=== PATIENT | male | born 1965 | race Caucasian/White ===

== ENCOUNTER → 2016-09-05 | Outpatient (CLI) | payer OTHER ==
[~2016-09-05] MED LIST: ALLOPURINOL 30300 M1; ALPRAZOLAM 0.50.5 MG PO; AMLODIPINE BESY10 MG PO; AMOXICILLIN 50500 M1 PO; ASPIRIN EC81 M1 PO; ATIVAN1 MG PO; B-123000 MCG SL; BACLOFEN; BACLOFEN 10 MG10 MG PO; BACLOFEN 10MG T10 M1 PO; BACLOFEN 10MG T10 MG PO; BACTRIM DS TAB1 EACH PO; BUTALB-APAP-CA1 EACH PO; BYSTOLIC 5 MG5 M1 PO; BYSTOLIC10 MG PO; BYSTOLIC20 MG PO; CARISOPRODOL 3350 MG PO; CELEBREX100 MG/1 C PO; CENTRUM COMPLE1 EACH PO; CHLORTHALID; CHLORTHALIDONE25 MG PO; CIPROFLOXACIN500 M1 PO; CLEOCIN HCL300 MG PO; FIORICET 50-301 EACH PO; FIORICET 50-321 EACH PO; FLAGYL500 MG PO; HYDROCHLOROTHIA25 M1 PO; HYDROCODON-ACE1 EAC5 PO; HYDROCODON-ACE1 EAC7 PO; HYDROCODON-ACE1 EAC8 PO; HYDROCODONE-AP1 EAC6 PO; IBUPROFEN 200200 M1; IMITREX100 MG PO; LIMBREL 500 MG500 MG PO; LISINOPRIL-HCT1 EAC1 PO; LISINOPRIL-HCT1 EACH PO; LOPERAMIDE 2 MG2 M1 PO; LORTAB 10 MG-3473 ML PO; MOBIC15 MG PO; MULTI-VITAMIN1 EAC5 PO; MULTILIQ120 PO; MULTIVITAM9 MG/15 M1 PO; NEURONTIN 300300 M1 PO; NEURONTIN 300M300 M2 PO; NITROQUICK0.4 MG SL; NORCO 5-325 TA1 EACH PO; NORCO 7.5-3251 EACH PO; NORVASC 5 MG TAB5 MG PO; ONDANSETRON HCL4 M2 PO; OXYCODONE-APAP1 EAC6 PO; PEPCID40 MG PO; PERCOCET 7.5-31 EACH PO; POTASSIUM99 M1; POTASSIUM99 M1 PO; PRINZIDE 20-251 EACH PO; PROAIR HFA8.5 GM INH; RANITIDINE HCL300 M1 PO; RESTORIL15 MG PO; SOF-LAX100 MG PO; SOMA250 MG PO; TIZANIDINE HCL4 MG PO; TOPROL XL100 MG PO; TRAMADOL 50 MG50 MG; TRAMADOL 50 MG50 MG PO; TRAMADOL HCL150 MG PO; ULTRAM 50MG TAB50 MG PO; VANCOCIN 250 M250 M1 PO; VASOTEC20 MG PO; VICODIN 5-5001 EACH PO; VISTARIL 25 MG25 M1 PO; VITAMIN B12; VITAMIN D1000 UNI1; VITAMIN D1000 UNI1 PO; VITAMIN E400 UNIT PO; VOLTAREN GEL 1100 G1 TOP; VOLTAREN GEL 1100 G2 TOP; ZANTAC 150MG T150 M1 PO; ZESTORETIC 20-1 EAC3 PO; ZOFRAN4 MG PO; [UNRECOGNIZED DRUG - OTHER]; famvir PO
== END ==
LOC: CAT 09:34
DX: R06.00 Dyspnea, unspecified (principal)

== ENCOUNTER 2016-09-10 10:42 | Emergency (ER) | payer OTHER ==
[~2016-09-10] VITALS: Ht 180.3 cm; Wt 98.9 kg
== END 2016-09-10 12:09 | disposition home or self-care (01) ==
LOC: ER 10:42
DX: Z53.21 Procedure and treatment not carried out due to patient leaving prior to being seen by health care provider (principal)

== ENCOUNTER 2017-02-25 01:25 | Emergency (ER) | payer OTHER ==
[~2017-02-25] VITALS: Ht 180.3 cm; Wt 95.3 kg
[~2017-02-25 01:25] MED LIST changes: +COMPAZINE10 MG PO
[2017-02-25] MEDS ORDERED: TRAMADOL 50 MG50 MG PO (02:45)
[2017-02-25] MEDS ORDERED: NAPROSYN500 MG PO (02:45)
== END 2017-02-25 03:26 | disposition home or self-care (01) ==
LOC: ER 01:25
DX: S01.01XA Laceration without foreign body of scalp, initial encounter (principal); S01.312A Laceration without foreign body of left ear, initial encounter; S40.012A Contusion of left shoulder, initial encounter; S90.32XA Contusion of left foot, initial encounter; I10 Essential (primary) hypertension; K21.9 Gastro-esophageal reflux disease without esophagitis; G43.909 Migraine, unspecified, not intractable, without status migrainosus; Z86.73 Personal history of transient ischemic attack (TIA), and cerebral infarction without residual deficits; Z87.891 Personal history of nicotine dependence; Z88.1 Allergy status to other antibiotic agents; Z88.4 Allergy status to anesthetic agent; Z88.5 Allergy status to narcotic agent; Z88.8 Allergy status to other drugs, medicaments and biological substances; W18.09XA Striking against other object with subsequent fall, initial encounter; Y93.89 Activity, other specified; Y92.89 Other specified places as the place of occurrence of the external cause; Y99.8 Other external cause status

== ENCOUNTER 2017-04-25 07:32 | Inpatient (IN) | payer OTHER ==
[~2017-04-25] VITALS: Ht 224 cm; Wt 96.2 kg
--- NOTE | ~2017-04-25 | EKG ---
[address] [address] ELECTROCARDIOGRAM REPORT Name: JULIANE QUEZADA Room #: 218-P [facility] IN M.R.#: [id number] Admission: 04/25/17 Attend Phys: Leroy Zarco MD Discharge: 04/26/17 Date of : 65 Report #: [id number] THIS REPORT FOR: //name// [facility] ED Test Date: 2017-04-25 Test Time: 10:24:58 Pat Name: JULIANE QUEZADA Department: Room: 218 Gender: M Manager Interface: 12 : 1965 Requested By: Roberto Ocampo Order Number: [id number] MD: Gordo Zamora Measurements Intervals [place] Rate: 65 P: [place]: QRS: 43 QRSD: 102 T: 68 QT: 451 QTc: 469 Interpretive Statements Normal sinus rhythm. Electronically Signed On 04-27-2017 12:15:57 PATROL INSPECTOR by Gordo Zamora [email or web address] <ELECTRONICALLY SIGNED> By: Gordo Zamora MD 04/27/17 1215 1024 Katiana Zamora MD /ABE
--- NOTE | ~2017-04-25 | HC ---
[facility] [place] [address] CONSULTATION Name: JULIANE QUEZADA Room #: 218-P [facility] IN M.R.#: [id number] Admission: 04/25/17 Attend Phys: Leroy Zarco MD Discharge: 04/26/17 Date of : 65 Report #: [id number] THIS REPORT FOR: //name// CC: Leroy Russ DATE OF SERVICE: 04/25/2017 HISTORY OF PRESENT ILLNESS: This is a 52-year-old male patient who was evaluated by me because he indicated that a box fell on him. It hit the left side of the head and then he had symptom of a fog and some right-sided weakness. He had TIA in the past and he had migraine in the past. After admission, his symptoms have resolved. He feels back to his baseline. REVIEW OF SYSTEMS: Pretty extensive. He has an extensive history of migraine headache. He indicates he had a TIA in the past. He had some bradycardia when he was in the Emergency Room. He has been stable since then. He does have a history of anxiety. He is very claustrophobic and he does not think he can do a closed MRI. He has numerous other symptoms which are summarized in the patient's other notes and they were reviewed. That was his relevant 14-point review of system. PAST MEDICAL HISTORY: Positive for migraine. FAMILY HISTORY: Negative for early stroke. SOCIAL HISTORY: Record indicate that he is a former smoker. PHYSICAL EXAMINATION: Indicate he is alert, responsive, able to follow simple and complex command. His speech, concentration, fund of knowledge and memory is at his baseline. Cranial nerve examination 2-12 is unremarkable. Strength, sensation, reflexes and tone is symmetrical. There is no meningeal sign. There is no carotid bruit. Pupils look symmetrical and I do not see any papilledema. Cardiac examination is mostly unremarkable. No respiratory difficulty was noticed. He is a very well-built individual who does not have any dysmorphic features of eyes, ears and face. Blood pressure is 123/78, respirations 17, pulse is 61, temperature is 98.7. LABORATORY DATA: Indicate a normal white count. IMPRESSION: I suspect the patient's symptoms were most likely secondary to migraine. All the symptoms have resolved and he has migraine and transient ischemic attacks in the past. CT angiogram was reviewed and was normal. I would like to do an MRI in this patient, but he does not think he can do a [facility] [address] [place] [address] CONSULTATION Name: JULIANE QUEZADA Room #: 218-P [facility] IN .R.#: [id number] Admission: 04/25/17 Attend Phys: Leroy Zarco MD Discharge: 04/26/17 Date of : 65 Report #: [id number] closed MRI. So, I guess we have to do an open MRI as an outpatient. His cardiology workup is being done and we will see what that workup shows. I discussed all of it with the patient and I discussed the patient with the Emergency Room physician and we will see how he does and go ahead and get an EEG done some time. Thank you very much for this referral. <ELECTRONICALLY SIGNED> By: Narciso Russ MD 04/29/17 1107 2039 0518 Narciso Russ MD /nt
--- NOTE | ~2017-04-25 | 2DMMODE ---
[facility] [place] [address] 2 D/M-MODE ECHOCARDIOGRAM Name: JULIANE QUEZADA Room #: 170-9 ADM IN ..#: [id number] Admission: 04/25/17 Attend Phys: Leroy Zarco MD Discharge: Date of : 65 Date of Service: 04/25/17 1403 Report #: [id number] THIS REPORT FOR: //name// APPROVED REPORT Study performed: 04/25/2017 13:16:45 EXAM: Comprehensive 2D, Doppler, and color-flow Echocardiogram Patient Location: ER Room #: 9 Status: routine BSA: 2.16 HR: 62 bpm BP: 104/66 mmHg Rhythm: NSR Other Information Study Quality: Good Indications Sycnope, bradycardia. Hx: HTN, TIA 2D Dimensions RVDd: 43.78 mm LVEF(%): 69.17 (>50%) IVSd: 11.32 (7-11mm) LVOT Diam: 22.41 (18-24mm) LVDd: 46.12 mm PWd: 11.15 (7-11mm) LVDs: 28.25 (25-40mm) Aortic Root: 35.52 mm Navarrete's LVEF: 69.17 % Volumes Left Atrial Volume (Systole) Single Plane 4CH: 59.76 mL Single Plane 2CH: 51.33 mL LA ESV Index: 29.00 mL/m2 Aortic Valve AoV Peak Jun.: 1.26 m/s AO Peak Gr.: 6.32 mmHg LVOT Max P.22 mmHg LVOT Max V: 1.03 m/s ALLI Vmax: 3.22 cm2 Mitral Valve E/A Ratio: 1.4 MV Decel. Time: 201.05 ms [facility] [place] [address] 2 D/M-MODE ECHOCARDIOGRAM Name: PILARJULIANE LARA Room #: 1709 ADM IN ..#: [id number] Admission: 04/25/17 Attend Phys: Leroy Zarco MD Discharge: Date of : 65 Date of Service: 04/25/17 1403 Report #: [id number] MV E Max Jun.: 0.90 m/s MV A Jun.: 0.66 m/s MV PHT: 58.31 ms IVRT: 87.66 ms Pulmonary Valve PV Peak Jun.: 1.13 m/s PV Peak Gr.: 5.09 mmHg Pulmonary Vein P Vein S: 0.45 m/s P Vein A: 0.28 m/s P Vein D: 0.35 m/s P Vein A Dur.: 106.1 msec P Vein S/D Ratio: 1.29 Tricuspid Valve RAP Estimate: 5.00 mmHg Left Ventricle The left ventricle is normal size. There is normal LV segmental wall motion. There is normal left ventricular wall thickness. Left ventricular systolic function is normal. LVEF is 55-60%. The left ventricular diastolic function is normal. Right Ventricle The right ventricle is normal size. The right ventricular systolic function is normal. Atria The left atrium size is normal. The right atrium size is normal. Aortic Valve The aortic valve is normal in structure. No aortic regurgitation is present. There is no aortic valvular stenosis. Mitral Valve The mitral valve is normal in structure. Trace mitral regurgitation. No evidence of mitral valve stenosis. Tricuspid Valve The tricuspid valve is normal in structure. Minimal tricuspid regurgitation. Unable to assess PA pressure. Pulmonic Valve Pulmonic valve is not well visualized. Trace pulmonic regurgitation. [facility] [address] [place] [address] 2 D/M-MODE ECHOCARDIOGRAM Name: PILARJULIANE LARA Room #: 170-9 [facility] IN .R.#: [id number] Admission: 04/25/17 Attend Phys: Leroy Zarco MD Discharge: Date of : 65 Date of Service: 04/25/17 1403 Report #: [id number] Great Vessels The aortic root is normal in size. IVC is normal in size and collapses >50% with inspiration. Pericardium There is no pericardial effusion. <Conclusion> The left ventricle is normal size. LVEF is 55-60%. The aortic valve is normal in structure. The mitral valve is normal in structure. Trace mitral regurgitation. The tricuspid valve is normal in structure. Minimal tricuspid regurgitation. Unable to assess PA pressure. Pulmonic valve is not well visualized. Trace pulmonic regurgitation. There is no pericardial effusion. <ELECTRONICALLY SIGNED> By: Jonnie Vasquez MD 04/25/17 1403 1403 140 Jonnie Vasquez MD /INF
[~2017-04-25 07:32] MED LIST changes: +NAPROSYN500 MG PO
[2017-04-25 07:33] VITALS: BP 140/92
[2017-04-25 08:19] LABS: HEMATOCRIT 54.1 % (42.0-52.0); MCH 29.2 pg (26.0-34.0); MCHC 33.2 g/dL (28.0-37.0); MCV 87.9 fL (80.0-100.0); RBC 6.16 mil/uL (4.50-6.00); RDW 14.1 % (10.5-14.5); WBC 6.7 thou/uL (4.0-11.0)
[2017-04-25 08:24] LABS: ANION GAP 8 mmol/L (7-16); BUN 17 mg/dL (7-18); CALCIUM 8.8 mg/dL (8.5-10.1); CHLORIDE 105 mmol/L (98-107); CO2 28 mmol/L (21-32); GLUCOSE 93 mg/dL (74-106); POTASSIUM 3.9 mmol/L (3.5-5.1); SODIUM 141 mmol/L (136-145)
[2017-04-25 08:32] LABS: APTT 30.1 Seconds (24.5-32.8); INR 1.2; PROTIME 11.8 Seconds (9.3-11.4)
[2017-04-25 08:33] LABS: TROPONIN-I < 0.04 ng/mL (<0.06)
[2017-04-25 13:32] LABS: AMP/METHAMP Negative (Negative); BARBITURATES Negative (Negative); BENZODIAZEPINES POSITIVE (Negative); COCAINE Negative (Negative); METHADONE Negative (Negative); OPIATES Negative (Negative); PCP Negative (Negative); THC Negative (Negative)
[2017-04-25 16:47] VITALS: BP 129/81
[2017-04-25 17:24] VITALS: BP 123/78
[2017-04-25 19:45] VITALS: BP 114/70
[2017-04-25 21:28] VITALS: BP 106/66
[2017-04-26 00:30] VITALS: BP 111/68
[2017-04-26 04:07] LABS: CHOLESTEROL 161 mg/dL (<200); HDL CHOLESTEROL 44 mg/dL (>40); LDL CHOLESTEROL 98 mg/dL (<100); TC:HDL 3.7 Ratio (Not establshd); TRIGLYCERIDE 97 mg/dL (<150); VLDL 19 mg/dL (<40)
[2017-04-26 04:09] LABS: SERUM ASSESSMENT Clear
[2017-04-26 04:15] VITALS: BP 120/81
[2017-04-26 08:15] VITALS: BP 127/88
[2017-04-26 09:43] VITALS: BP 127/88
[2017-04-26 10:09] VITALS: BP 127/88
== END 2017-04-26 10:05 | disposition home or self-care (01) | DRG 308 ==
LOC: ER 07:32 → EROBS 10:32 → 2N 16:17
PROVIDERS: Emergency Medicine; Nurse Practitioner; Nurse Practitioner Gerontology
PROC: 009U3ZX Drainage of Spinal Canal, Percutaneous Approach, Diagnostic (ICD-10-PCS; principal; 2017-04-25)
DX: R00.1 Bradycardia, unspecified (principal); G93.40 Encephalopathy, unspecified; G43.909 Migraine, unspecified, not intractable, without status migrainosus; I10 Essential (primary) hypertension; G89.29 Other chronic pain; M54.9 Dorsalgia, unspecified; K21.9 Gastro-esophageal reflux disease without esophagitis; Z79.899 Other long term (current) drug therapy; Z86.73 Personal history of transient ischemic attack (TIA), and cerebral infarction without residual deficits; Z98.84 Bariatric surgery status; Z88.1 Allergy status to other antibiotic agents; Z88.8 Allergy status to other drugs, medicaments and biological substances; Z87.891 Personal history of nicotine dependence
CPT/HCPCS: 10081

== ENCOUNTER → 2017-05-16 | Outpatient (CLI) | payer OTHER | LOC: NUC 07:58 | DX: R00.1 Bradycardia, unspecified (principal); I10 Essential (primary) hypertension; Z87.891 Personal history of nicotine dependence ==

== ENCOUNTER → 2017-07-02 | Outpatient (CLI) | payer OTHER ==
[~2017-07-02] MED LIST changes: +ALPRAZOLAM2 MG PO; +AMITRIPTYLINE H10 M3 PO; +LISINOPRIL5 MG PO; +SSD CREAM 1% 5050 GM TOP; +VENTOLIN HFA 1818 GM INH
== END ==
LOC: CAT 09:44
PROVIDERS: Psychiatry & Neurology Neuromuscular Medicine
DX: I67.82 Cerebral ischemia (principal); G43.919 Migraine, unspecified, intractable, without status migrainosus; Z87.828 Personal history of other (healed) physical injury and trauma

== ENCOUNTER 2017-07-28 23:09 | Emergency (ER) | payer OTHER ==
[~2017-07-28] VITALS: Ht 180.3 cm; Wt 99.8 kg
[~2017-07-28 23:09] MED LIST changes: -ALPRAZOLAM2 MG PO; -AMITRIPTYLINE H10 M3 PO; -LISINOPRIL5 MG PO; -SSD CREAM 1% 5050 GM TOP; -VENTOLIN HFA 1818 GM INH
[2017-07-29] MEDS ORDERED: SSD CREAM 1% 5050 GM TOP (00:41)
[2017-07-29 01:19] VITALS: BP 109/71
[2018-03-20] MEDS ORDERED: ALPRAZOLAM2 MG PO (13:49)
[2018-03-20] MEDS ORDERED: AMLODIPINE BESY10 MG PO (13:51)
[2018-03-20] MEDS ORDERED: AMITRIPTYLINE H10 M3 PO (13:51)
[2018-03-20] MEDS ORDERED: LISINOPRIL-HCT1 EAC1 PO (13:54)
[2018-03-20] MEDS ORDERED: VENTOLIN HFA 1818 GM INH (14:03)
== END 2017-07-29 01:20 | disposition home or self-care (01) ==
LOC: ER 23:09
DX: T22.10XA Burn of first degree of shoulder and upper limb, except wrist and hand, unspecified site, initial encounter (principal); S01.01XA Laceration without foreign body of scalp, initial encounter; S01.21XA Laceration without foreign body of nose, initial encounter; W38.XXXA Explosion and rupture of other specified pressurized devices, initial encounter; Y93.G3 Activity, cooking and baking; Y92.89 Other specified places as the place of occurrence of the external cause; Y99.8 Other external cause status

== ENCOUNTER → 2017-08-05 | Outpatient (CLI) | payer OTHER ==
[~2017-08-05] MED LIST changes: +ALPRAZOLAM2 MG PO; +AMITRIPTYLINE H10 M3 PO; +LISINOPRIL5 MG PO; +SSD CREAM 1% 5050 GM TOP; +VENTOLIN HFA 1818 GM INH
== END ==
LOC: RAD 14:03
DX: R05 Cough (principal)

== ENCOUNTER → 2017-08-28 | Outpatient (CLI) | payer OTHER ==
[~2017-08-28] MED LIST changes: -ALPRAZOLAM2 MG PO; -AMITRIPTYLINE H10 M3 PO; -LISINOPRIL5 MG PO; -VENTOLIN HFA 1818 GM INH
== END ==
LOC: RAD 15:21
DX: R91.8 Other nonspecific abnormal finding of lung field (principal)

== ENCOUNTER 2018-01-08 09:43 | Inpatient (IN) | payer OTHER ==
[~2018-01-08] VITALS: Ht 180.3 cm; Wt 104.3 kg
[2018-01-08] VITALS (8 sets, daily range): BP systolic 119–142; BP diastolic 78–99
--- NOTE | ~2018-01-08 | EEG ---
[facility] [place] [address] ELECTROENCEPHALOGRAM Name: JULIANE QUEZADA Room #: 417[facility]I [facility] IN M.R.#: [id number] Admission: 01/08/18 Attend Phys: Zion Bangura MD Discharge: 01/09/18 Date of : 65 Report #: [id number] THIS REPORT FOR: //name// CC: Bennie Omer MD HISTORY: The patient is a 52-year-old male with syncope. An EEG is requested for further evaluation. DESCRIPTION: The awake record consists of symmetric moderate amplitude 8-9 Hz posterior dominant rhythm that attenuates with eye opening. Stage 1 sleep is characterized by attenuation of the background record. Photic stimulation was non-activating. No focal abnormalities or epileptiform discharges were noted. IMPRESSION: This is a normal adult awake to stage 1 sleep record. No focal abnormalities or epileptiform discharges were noted. By: 1022 1233 Paula Teran DO /nt
--- NOTE | ~2018-01-08 | EKG ---
[address] [place] [address] ELECTROCARDIOGRAM REPORT Name: JULIANE QUEZADA Room #: 417-I ADM IN M.R.#: [id number] Admission: 01/08/18 Attend Phys: Zion Bangura MD Discharge: Date of : 65 Report #: [id number] THIS REPORT FOR: //name// [facility] ED Test Date: 2018-01-08 Test Time: 09:52:59 Pat Name: JULIANE QUEZADA Department: Room: [facility] Gender: M Outreach Librarian: : 1965 Requested By: Mateo Moreno Order Number: [id number] MD: Kg Grullon Measurements Intervals [place] Rate: 74 P: 75 DE: 199 QRS: 52 QRSD: 96 T: 87 QT: 394 QTc: 438 Interpretive Statements Sinus rhythm No significant abnormality Baseline wander in lead(s) V1 Compared to ECG 04/25/2017 10:24:58 No significant changes Electronically Signed On 01-08-2018 16:52:51 CDT by Kg Grullon [email or web address] <ELECTRONICALLY SIGNED> By: Kg Grullon MD, [facility] 01/08/18 1652 Kg Grullon MD, [facility] /EPI
--- NOTE | ~2018-01-08 | HC ---
[facility] [place] [address] CONSULTATION Name: PILARJULIANE BERMUDEZ Room #: 417-I [facility] IN .R.#: [id number] Admission: 01/08/18 Attend Phys: Zion Bangura MD Discharge: 01/09/18 Date of : 65 Report #: [id number] THIS REPORT FOR: //name// CC: Bennie Bangura DATE OF SERVICE: 01/09/2018 INDICATION: Syncope. HISTORY OF PRESENT ILLNESS: This is a 52-year-old gentleman with a history of hypertension, bradycardia, and TIA, presenting with recurrent syncope. He initially presented with a syncopal episode last year. He was undergoing a lumbar puncture, developed bradycardia and syncope. That was attributed to a vasovagal event. Since then, the beta-laith was discontinued. Over the past 3 days, he has had 3 episodes of near syncope. Two of them occurred when he stood up to start walking. He started to feel nausea and lightheadedness. He sat down and the symptoms resolved. The third episode occurred at work, he was standing, putting something on a shelf. He developed lightheadedness and near syncope. There is no history of chest pains, dyspnea, fever, or diarrhea. PAST MEDICAL HISTORY: Hypertension, TIA, chronic back pains, and gastric bypass. ALLERGIES: INCLUDE AMBIEN, AZITHROMYCIN, FENTANYL, AND HYDROMORPHONE. MEDICATIONS AT HOME: Include lisinopril/HCTZ, amlodipine 10 mg, Neurontin, and Ultram. SOCIAL HISTORY: Denies tobacco use. FAMILY HISTORY: Negative for premature CAD. REVIEW OF SYSTEMS: A full 10-point review of systems was performed. Only the pertinent positives and negatives are described in the HPI. PHYSICAL EXAMINATION: VITAL SIGNS: Blood pressure is 128/84, heart rate is 68 beats per minute. GENERAL APPEARANCE: This is a mildly overweight male, in no acute distress. HEENT: Normocephalic. Sclerae are anicteric. ENT: Oral mucosa moist. NECK: Supple. LUNGS: Clear to auscultation. CARDIAC: Regular rate and rhythm, S1, S2 positive. ABDOMEN: Soft, nontender. EXTREMITIES: No cyanosis, trace edema. [facility] [address] [place] [address] CONSULTATION Name: JULIANE QUEZADA Room #: 417-I [facility] IN [facility]#: [id number] Admission: 01/08/18 Attend Phys: Zion Bangura MD Discharge: 01/09/18 Date of : 65 Report #: [id number] DIAGNOSTIC STUDIES: ECG reveals sinus rhythm, nonspecific ST segment abnormalities. LABORATORY VALUES: Hemoglobin on admission was 18.6, repeat was 16.6; platelet count 200,000. Sodium is 138, creatinine is 1.1. Troponin is negative. ASSESSMENT AND PLAN: 1. Syncope, probably vasovagal mediated. We will check orthostatic blood pressures to rule out orthostatic hypotension. In reviewing his medications, we will discontinue the hydrochlorothiazide. This may be contributing to a reflexive response. I did recommend to the patient that when he starts to feel lightheaded, that he needs to sit down or lay down quickly. In addition, I did recommend staying well hydrated. Continue telemetry for now. 2. Bradycardia, stable at this time with no further episodes. If he has recurrent episodes, he may need a loop recorder. 3. Hypertension, stable blood pressure on the current regimen. <ELECTRONICALLY SIGNED> By: Quinn Hensley MD 01/10/18 0748 0925 1425 Quinn Hensley MD /nt
[2018-01-08 10:23] LABS: ABSOLUTE NEUTROPHILS 5.4 thou/uL (1.4-8.2); BASOPHILS 0.6 % (0.0-2.0); EOSINOPHILS 1.6 % (0.0-3.0); HEMATOCRIT 53.7 % (42.0-52.0); HEMOGLOBIN 18.6 gm/dL (14.0-18.0); LYMPHOCYTES 21.9 % (24.0-44.0); MCH 29.3 pg (26.0-34.0); MCHC 34.6 g/dL (28.0-37.0); MCV 84.5 fL (80.0-100.0); PLATELET COUNT 202 thou/uL (150-400); POLYS 68.9 % (36.0-66.0); RBC 6.35 mil/uL (4.50-6.00); RDW 13.7 % (10.5-14.5); WBC 7.9 thou/uL (4.0-11.0)
[2018-01-08 10:37] LABS: ANION GAP 7 mmol/L (7-16); BUN 16 mg/dL (7-18); CALCIUM 9.6 mg/dL (8.5-10.1); CHLORIDE 103 mmol/L (98-107); CO2 28 mmol/L (21-32); CREATININE 1.1 mg/dL (0.7-1.3); GLUCOSE 97 mg/dL (74-106); POTASSIUM 4.1 mmol/L (3.5-5.1); SODIUM 138 mmol/L (136-145)
[2018-01-08 10:41] LABS: ALBUMIN 4.1 g/dL (3.4-5.0); SGOT 21 U/L (15-37); SGPT 30 U/L (30-65); TOTAL BILIRUBIN 0.7 mg/dL (<0.1-1.0); TROPONIN-I <0.06 ng/mL (<0.06)
[2018-01-09 04:58] VITALS: BP 128/84
[2018-01-09 07:04] LABS: HEMATOCRIT 49.4 % (42.0-52.0); MCH 29.1 pg (26.0-34.0); MCHC 33.6 g/dL (28.0-37.0); MCV 86.8 fL (80.0-100.0); RBC 5.69 mil/uL (4.50-6.00); RDW 13.9 % (10.5-14.5); WBC 5.9 thou/uL (4.0-11.0)
[2018-01-09 07:07] LABS: HEMOGLOBIN 16.6 gm/dL (14.0-18.0)
[2018-01-09 07:15] LABS: CALCIUM 8.7 mg/dL (8.5-10.1); POTASSIUM 4.6 mmol/L (3.5-5.1)
[2018-01-09 07:30] VITALS: BP 129/80
[2018-01-09] MEDS ORDERED: LISINOPRIL5 MG PO (11:02)
[2018-01-09 13:05] VITALS: BP 129/80
== END 2018-01-09 14:03 | disposition home or self-care (01) | DRG 312 ==
LOC: ER 09:43 → 4E 12:03 → EROBS 12:03 → 4E 13:10
PROVIDERS: Hospitalist; Physician Assistant
DX: R55 Syncope and collapse (principal); I10 Essential (primary) hypertension; F41.9 Anxiety disorder, unspecified; G89.29 Other chronic pain; M54.9 Dorsalgia, unspecified; K21.9 Gastro-esophageal reflux disease without esophagitis; R00.1 Bradycardia, unspecified; G43.909 Migraine, unspecified, not intractable, without status migrainosus; Z88.6 Allergy status to analgesic agent; Z88.1 Allergy status to other antibiotic agents; Z88.8 Allergy status to other drugs, medicaments and biological substances; Z98.84 Bariatric surgery status; Z86.73 Personal history of transient ischemic attack (TIA), and cerebral infarction without residual deficits; Z87.891 Personal history of nicotine dependence; Z79.899 Other long term (current) drug therapy
CPT/HCPCS: 10183

== ENCOUNTER → 2018-03-13 | Outpatient (CLI) | payer OTHER ==
[~2018-03-13] MED LIST changes: +LISINOPRIL5 MG PO
== END ==
LOC: RAD 03-06 11:25
DX: K21.9 Gastro-esophageal reflux disease without esophagitis (principal); R19.7 Diarrhea, unspecified

== ENCOUNTER → 2018-03-21 | Outpatient (CLI) | payer OTHER ==
[~2018-03-21] MED LIST changes: +ALPRAZOLAM2 MG PO; +AMITRIPTYLINE H10 M3 PO; +VENTOLIN HFA 1818 GM INH
== END ==
LOC: RAD 11:16
DX: M77.31 Calcaneal spur, right foot (principal)

== ENCOUNTER → 2018-03-25 | Outpatient (CLI) | payer OTHER ==
[~2018-03-25] VITALS: Ht 180.3 cm; Wt 99.8 kg
--- NOTE | ~2018-03-25 | O ---
[facility] [place] [address] OPERATIVE REPORT Name: PILARJULIANE BERMUDEZ Room #: REG [facility] Brenda#: [id number] Admission: 03/25/18 Attend Phys: Denver Hernandez MD, Discharge: Date of : 65 Report #: [id number] THIS REPORT FOR: //name// CC: Bennie Hernandez DATE OF SERVICE: 03/25/2018 PREOPERATIVE DIAGNOSES: 1. History of laparoscopic sleeve gastrectomy. 2. Significant weight regain. 3. Gastroesophageal reflux disease. POSTOPERATIVE DIAGNOSES: 1. History of laparoscopic sleeve gastrectomy. 2. Significant weight regain. 3. Gastroesophageal reflux disease. 4. Dilated gastric sleeve. 5. Small hiatal hernia. PROCEDURE PERFORMED: Thorough esophagogastroduodenoscopy (EGD). SURGEON: Denvre Hernandez MD CLINICAL BUSINESS ANALYST: None. ANESTHESIA: Monitored anesthesia care. ESTIMATED BLOOD LOSS: None. COMPLICATIONS: None. SPECIMENS: None. INDICATIONS: The patient is a 53-year-old obese male who several years ago underwent a laparoscopic sleeve gastrectomy for weight loss, with initial significant weight loss, who has had weight regain as of late, even while maintaining an appropriate postoperative bariatric diet. The patient has also developed significant GERD and as such, indication was for the above-mentioned procedure today. DESCRIPTION OF PROCEDURE: After explaining the risks, benefits and alternatives of the procedure with the patient in detail and obtaining consent, the patient was brought to the endoscopy suite supine on the hospital cart. After conducting a thorough timeout procedure, verifying correct patient and procedure, the patient was given monitored anesthesia care after positioning him [facility] [address] [place] [address] OPERATIVE REPORT Name: JULIANE QUEZADA Room #: REG [facility].#: [id number] Admission: 03/25/18 Attend Phys: Denver Hernandez MD, Discharge: Date of : 65 Report #: [id number] in the left lateral decubitus position. The [employer] upper endoscope was used to intubate the oropharynx, was easily traversed down into the esophagus and past the pylorus and the second portion of duodenum. Slow and careful withdrawal of the scope showed no evidence of duodenitis, gastritis, esophagitis, mass, lesions or ulcerations. Within the gastric sleeve, it did appear slightly dilated and I was actually able to easily retroflex within the mid body of the stomach, showing evidence of a small hiatal hernia as well. Photodocumentation of the dilated sleeve as well as a small hiatal hernia were taken and provided to the patient and the permanent medical record. Slow withdrawal of the scope into the distal esophagus showed a patulous lower esophageal sphincter, but no evidence of reflux esophagitis or Moyer's changes. The scope was advanced back in the gastric lumen where stomach was fully desufflated. The scope was removed via the oropharynx, passed off the field. At the completion of the procedure, all instrument, needle and sponge counts were correct. The patient tolerated the procedure without incident, was awakened in the endoscopy suite and transitioned to the recovery room in stable condition with no apparent complications. <ELECTRONICALLY SIGNED> By: Denver Hernandez MD, FACS 03/26/18 0858 0855 1112 Denver Hernandez MD, FACS /nt
== END | disposition home or self-care (01) ==
LOC: GI 06:59
DX: K95.89 Other complications of other bariatric procedure (principal); E66.9 Obesity, unspecified; K44.9 Diaphragmatic hernia without obstruction or gangrene; K21.9 Gastro-esophageal reflux disease without esophagitis; Z90.3 Acquired absence of stomach [part of]; Z98.84 Bariatric surgery status; I10 Essential (primary) hypertension; G43.909 Migraine, unspecified, not intractable, without status migrainosus; G89.29 Other chronic pain; Z98.890 Other specified postprocedural states; Z87.891 Personal history of nicotine dependence; Z86.73 Personal history of transient ischemic attack (TIA), and cerebral infarction without residual deficits; Z79.899 Other long term (current) drug therapy; Z88.8 Allergy status to other drugs, medicaments and biological substances; Z68.30 Body mass index [BMI] 30.0-30.9, adult
CPT/HCPCS: 62110; 62900

== ENCOUNTER → 2018-05-28 | Outpatient (CLI) | payer OTHER | LOC: RAD 14:31 | DX: S09.90XA Unspecified injury of head, initial encounter (principal); M76.892 Other specified enthesopathies of left lower limb, excluding foot; M54.5 Low back pain; W19.XXXA Unspecified fall, initial encounter; Y93.89 Activity, other specified; Y92.89 Other specified places as the place of occurrence of the external cause; Y99.8 Other external cause status ==

== ENCOUNTER 2018-06-08 20:22 | Emergency (ER) | payer OTHER ==
[~2018-06-08] VITALS: Ht 180.3 cm; Wt 103.4 kg
[2018-06-08] MEDS ORDERED: NORCO 5-325 TA1 EACH PO (22:12)
[2018-06-08] MEDS ORDERED: FLEXERIL PO (22:12)
[2018-06-08 22:41] VITALS: BP 105/63
== END 2018-06-08 22:43 | disposition home or self-care (01) ==
LOC: ER 20:22
DX: S09.90XA Unspecified injury of head, initial encounter (principal); M25.572 Pain in left ankle and joints of left foot; M79.642 Pain in left hand; M54.5 Low back pain; M25.532 Pain in left wrist; G89.29 Other chronic pain; M54.9 Dorsalgia, unspecified; G43.909 Migraine, unspecified, not intractable, without status migrainosus; I10 Essential (primary) hypertension; Z87.891 Personal history of nicotine dependence; Z88.8 Allergy status to other drugs, medicaments and biological substances; Z88.4 Allergy status to anesthetic agent; Z88.6 Allergy status to analgesic agent; Z86.73 Personal history of transient ischemic attack (TIA), and cerebral infarction without residual deficits; W00.0XXA Fall on same level due to ice and snow, initial encounter; Y93.89 Activity, other specified; Y92.89 Other specified places as the place of occurrence of the external cause; Y99.8 Other external cause status

== ENCOUNTER 2018-10-15 11:04 | Emergency (ER) | payer OTHER ==
[~2018-10-15] VITALS: Ht 180.3 cm; Wt 103.4 kg
[~2018-10-15 11:04] MED LIST changes: +FLEXERIL PO
[2018-10-15] MEDS ORDERED: PROAIR HFA8.5 GM INH (11:25)
[2018-10-15] MEDS ORDERED: XANAX 0.25 MG0.25 MG PO (11:26)
[2018-10-15] MEDS ORDERED: LEXAPRO 10 MG T10 M2 PO (11:28)
[2018-10-15] MEDS ORDERED: BUTALB-APAP-CA1 EACH PO (11:29)
[2018-10-15] MEDS ORDERED: CENTRUM SILVER1 EAC4 PO (11:31)
[2018-10-15] MEDS ORDERED: ASPIR 8181 MG PO (11:31)
[2018-10-15] MEDS ORDERED: VOLTAREN GEL 1100 G2 TOP (11:31)
[2018-10-15] MEDS ORDERED: MOBIC15 MG PO (13:28)
[2018-10-15 14:08] VITALS: BP 123/84
--- NOTE | 2018-10-16 16:08 | EKG ---
[place] [address] [employer] [place] [address] ELECTROCARDIOGRAM REPORT Name: JULIANE QUEZADA Room #: DEP Brenda#: [id number] ������������������ Admission: 10/15/18 ������������������ Attend Phys: Discharge: 10/15/18 ������������������ Date of : 65 Report #: [id number] ����������������������������������������������������������������� [id number] THIS REPORT FOR: //name// [facility] ED Test Date: 2018-10-15 Test Time: 11:35:31 Pat Name: JULIANE QUEZADA Department: Room: Gender: Diamond Polisher: ALFRED : 1965 Requested By: Court Pearce Order Number: [id number] MD: Quinn Hensley Measurements Intervals [place] Rate: 65 P: [place]: QRS: 77 QRSD: 90 T: 82 QT: 438 QTc: 456 Interpretive Statements Sinus rhythm Nonspecific ST segment abnormalities Compared to ECG 01/08/2018 09:52:59 No significant change Electronically Signed On 10-16-2018 16:08:27 CDT by Quinn Hensley [email or web address] ��������������������������������������������� <ELECTRONICALLY SIGNED> ���������������������������������������� By: Quinn Hensley MD ��������������������������������������������� 10/16/18 1608 1135 1135 Quinn Hensley MD /ABE
== END 2018-10-15 14:10 | disposition home or self-care (01) ==
LOC: ER 11:04
DX: S46.811A Strain of other muscles, fascia and tendons at shoulder and upper arm level, right arm, initial encounter (principal); S80.01XA Contusion of right knee, initial encounter; R07.89 Other chest pain; M54.2 Cervicalgia; I10 Essential (primary) hypertension; G89.29 Other chronic pain; M54.9 Dorsalgia, unspecified; G43.909 Migraine, unspecified, not intractable, without status migrainosus; Z86.73 Personal history of transient ischemic attack (TIA), and cerebral infarction without residual deficits; Z88.6 Allergy status to analgesic agent; Z88.5 Allergy status to narcotic agent; Z88.8 Allergy status to other drugs, medicaments and biological substances; Z87.891 Personal history of nicotine dependence; W10.8XXA Fall (on) (from) other stairs and steps, initial encounter; Y93.89 Activity, other specified; Y92.89 Other specified places as the place of occurrence of the external cause; Y99.8 Other external cause status

== ENCOUNTER → 2018-10-16 | Outpatient (CLI) | payer OTHER ==
[~2018-10-16] MED LIST changes: +ASPIR 8181 MG PO; +CENTRUM SILVER1 EAC4 PO; +LEXAPRO 10 MG T10 M2 PO; +XANAX 0.25 MG0.25 MG PO
== END ==
LOC: CAT 11:16
DX: Z13.6 Encounter for screening for cardiovascular disorders (principal); E78.00 Pure hypercholesterolemia, unspecified; I25.10 Atherosclerotic heart disease of native coronary artery without angina pectoris

== ENCOUNTER 2019-01-27 06:06 | Emergency (ER) | payer OTHER ==
[~2019-01-27] VITALS: Ht 180.3 cm; Wt 103.4 kg
[2019-01-27 07:58] VITALS: BP 111/63
== END 2019-01-27 07:58 | disposition home or self-care (01) ==
LOC: ER 06:06
DX: S14.0XXA Concussion and edema of cervical spinal cord, initial encounter (principal); G89.29 Other chronic pain; M54.9 Dorsalgia, unspecified; I10 Essential (primary) hypertension; G43.909 Migraine, unspecified, not intractable, without status migrainosus; Z86.73 Personal history of transient ischemic attack (TIA), and cerebral infarction without residual deficits; Z98.84 Bariatric surgery status; Z88.6 Allergy status to analgesic agent; Z88.5 Allergy status to narcotic agent; Z88.8 Allergy status to other drugs, medicaments and biological substances; Z87.891 Personal history of nicotine dependence; W18.2XXA Fall in (into) shower or empty bathtub, initial encounter; Y92.89 Other specified places as the place of occurrence of the external cause; Y93.89 Activity, other specified; Y99.8 Other external cause status

== ENCOUNTER 2019-03-24 05:48 | Emergency (ER) | payer OTHER ==
[~2019-03-24] VITALS: Ht 180.3 cm; Wt 88.5 kg
[2019-03-24] MEDS ORDERED: TRAMADOL 50 MG50 MG PO (06:00)
[2019-03-24 08:27] VITALS: BP 148/86
== END 2019-03-24 08:29 | disposition home or self-care (01) ==
LOC: ER 05:48
DX: S16.1XXA Strain of muscle, fascia and tendon at neck level, initial encounter (principal); S09.8XXA Other specified injuries of head, initial encounter; I83.892 Varicose veins of left lower extremity with other complications; I10 Essential (primary) hypertension; G43.909 Migraine, unspecified, not intractable, without status migrainosus; G89.29 Other chronic pain; M54.9 Dorsalgia, unspecified; Z88.6 Allergy status to analgesic agent; Z88.5 Allergy status to narcotic agent; Z87.891 Personal history of nicotine dependence; Z86.73 Personal history of transient ischemic attack (TIA), and cerebral infarction without residual deficits; W01.198A Fall on same level from slipping, tripping and stumbling with subsequent striking against other object, initial encounter; Y92.89 Other specified places as the place of occurrence of the external cause; Y93.89 Activity, other specified; Y99.8 Other external cause status

== ENCOUNTER 2019-03-24 23:30 | Emergency (ER) | payer OTHER ==
[~2019-03-24] VITALS: Ht 180.3 cm; Wt 88.5 kg
[2019-03-25 00:56] VITALS: BP 128/78
== END 2019-03-25 00:57 | disposition home or self-care (01) ==
LOC: ER 23:30
DX: I83.892 Varicose veins of left lower extremity with other complications (principal); I10 Essential (primary) hypertension; G43.909 Migraine, unspecified, not intractable, without status migrainosus; G89.29 Other chronic pain; M54.9 Dorsalgia, unspecified; Z86.73 Personal history of transient ischemic attack (TIA), and cerebral infarction without residual deficits; Z98.84 Bariatric surgery status; Z88.6 Allergy status to analgesic agent; Z88.5 Allergy status to narcotic agent; Z88.8 Allergy status to other drugs, medicaments and biological substances; Z87.891 Personal history of nicotine dependence

== ENCOUNTER → 2019-04-17 | Outpatient (CLI) | payer OTHER | LOC: RAD 13:08 | DX: R05 Cough (principal); R09.89 Other specified symptoms and signs involving the circulatory and respiratory systems ==

== ENCOUNTER 2019-05-26 01:18 | Emergency (ER) | payer OTHER ==
[~2019-05-26] VITALS: Ht 180.3 cm; Wt 103.4 kg
[2019-05-26 02:20] LABS: ABSOLUTE NEUTROPHILS 4.9 thou/uL (1.4-8.2); BASOPHILS 0.8 % (0.0-2.0); EOSINOPHILS 2.4 % (0.0-3.0); HEMATOCRIT 49.4 % (42.0-52.0); HEMOGLOBIN 16.5 gm/dL (14.0-18.0); MCH 29.7 pg (26.0-34.0); MCHC 33.4 g/dL (28.0-37.0); MCV 88.8 fL (80.0-100.0); MONOCYTES 7.5 % (1.0-8.0); PLATELET COUNT 223 thou/uL (150-400); POLYS 61.3 % (36.0-66.0); RBC 5.56 mil/uL (4.50-6.00); RDW 13.4 % (10.5-14.5); WBC 7.9 thou/uL (4.0-11.0)
[2019-05-26 02:21] LABS: CALCIUM 8.5 mg/dL (8.5-10.1); CREATININE 1.1 mg/dL (0.7-1.3); POTASSIUM 3.8 mmol/L (3.5-5.1)
[2019-05-26 04:31] VITALS: BP 131/89
== END 2019-05-26 04:32 | disposition home or self-care (01) ==
LOC: ER 01:18
PROVIDERS: Emergency Medicine
DX: G43.909 Migraine, unspecified, not intractable, without status migrainosus (principal); I10 Essential (primary) hypertension; R42 Dizziness and giddiness; Z88.6 Allergy status to analgesic agent; Z88.8 Allergy status to other drugs, medicaments and biological substances; Z86.73 Personal history of transient ischemic attack (TIA), and cerebral infarction without residual deficits; Z87.891 Personal history of nicotine dependence

== ENCOUNTER → 2019-07-24 | Outpatient (CLI) | payer OTHER ==
[~2019-07-24] VITALS: Ht 180.3 cm; Wt 99.8 kg
--- NOTE | 2019-07-24 18:26 | P ---
[facility] [place] [address] PROCEDURE REPORT Name: JULIANE QUEZADA Room #: REG [facility] Brenda#: [id number] Admission: 07/24/19 Attend Phys: Melvin Ac Discharge: Date of : 65 Report #: [id number] THIS REPORT FOR: cc: Bennie Baugh,Melvin Owen MD ~ CC: Melvin Baugh DO DATE OF SERVICE: 07/24/2019 PROCEDURE PERFORMED: Colonoscopy. HISTORY OF PRESENT ILLNESS: The patient is a 54-year-old male with a history of polyps on last colonoscopy in 2011. He has a strong family history of colon cancer in 2 brothers and a sister. He denies any symptoms at this time. DESCRIPTION OF PROCEDURE: The risks and benefits of the procedure were explained to the patient, those risks including, but not limited to bleeding, perforation, and the risk of sedation. He understood these risks and gave informed consent. Sedation was given using propofol per anesthesia. Next, a digital rectal exam was initially performed, which was normal. Next, using a standard Olympus colonoscope, the scope was placed in the patient's anus and advanced under direct vision to the cecum. The overall prep was good. The cecum and ileocecal valve were normal in appearance. The ascending, transverse, descending, and sigmoid colon were normal. The rectal mucosa was normal. On retroflexion, small internal hemorrhoids were noted, otherwise normal colonoscopy. The scope was then withdrawn and the procedure terminated. The patient tolerated the procedure well. IMPRESSION: 1. Small internal hemorrhoids. 2. Otherwise, normal colonoscopy. RECOMMENDATIONS: Repeat colonoscopy in 5 years due to family history. Thank you for allowing me to participate in his care. <ELECTRONICALLY SIGNED> By: Melvin Paredes MD 07/24/19 1826 1055 1423 Melvin Paredes MD /nt
== END | disposition home or self-care (01) ==
LOC: GI 08:26
DX: Z12.11 Encounter for screening for malignant neoplasm of colon (principal); Z86.010 Personal history of colon polyps; Z80.0 Family history of malignant neoplasm of digestive organs; K64.8 Other hemorrhoids; I10 Essential (primary) hypertension; K21.9 Gastro-esophageal reflux disease without esophagitis; G43.909 Migraine, unspecified, not intractable, without status migrainosus; F41.9 Anxiety disorder, unspecified; G89.29 Other chronic pain; M54.9 Dorsalgia, unspecified; Z98.890 Other specified postprocedural states; Z79.899 Other long term (current) drug therapy; Z88.8 Allergy status to other drugs, medicaments and biological substances; Z98.84 Bariatric surgery status; Z87.891 Personal history of nicotine dependence; Z86.73 Personal history of transient ischemic attack (TIA), and cerebral infarction without residual deficits
CPT/HCPCS: 62110; 62900

== ENCOUNTER → 2019-08-06 | Outpatient (CLI) | payer OTHER | LOC: ULTRA 08-03 17:57 | DX: K76.0 Fatty (change of) liver, not elsewhere classified (principal); N40.0 Benign prostatic hyperplasia without lower urinary tract symptoms; M47.815 Spondylosis without myelopathy or radiculopathy, thoracolumbar region ==

== ENCOUNTER → 2019-08-19 | Outpatient (CLI) | payer OTHER | LOC: RAD 07:59 | DX: R05 Cough (principal) ==

== ENCOUNTER → 2019-10-21 | Outpatient (CLI) | payer OTHER | LOC: RAD 08:11 | DX: M16.0 Bilateral primary osteoarthritis of hip (principal); M47.817 Spondylosis without myelopathy or radiculopathy, lumbosacral region; M48.061 Spinal stenosis, lumbar region without neurogenic claudication; M51.27 Other intervertebral disc displacement, lumbosacral region; M25.78 Osteophyte, vertebrae ==

== ENCOUNTER → 2019-11-11 | Outpatient (CLI) | payer OTHER ==
[~2019-11-11] VITALS: Ht 177.8 cm; Wt 104.3 kg
[~2019-11-11] MED LIST changes: +IBU-200200 MG PO
[2019-11-11 12:44] VITALS: BP 124/86
--- NOTE | 2019-11-11 12:56 | NUR ---
Pain Clinic Assessment: 1. History of Osteoarthritis: Left Lower Extremity Right Lower Extremity History of Rheumatoid Arthritis: Not Applicable 2. Height: 5 ft. 10 in. 177.8 cm. Weight: 230.0 lb. oz. 104.328 kg. Patient's BMI: 33.0 3. Vital Signs: BP: 124/86 Pulse: 75 Resp: 20 Temp: 02 Sat: 98 ECG Mon: 4. Pain Intensity: 7 5. Fall Risk: Dizziness: N Needs help standing or walking: N Fallen in the last 3 months: N Fall risk comments: 6. Patient on Blood Thinner: None 7. History of Hypertension: Y 8. Opioid Therapy greater than 6 weeks: Y Opiate Contract Signed: 9. Risk Assessment Tool Provided: LOW-3 10. Functional Assessment Tool: 47/ 11. Recreational Drug Use: Never Drug Type: Tobacco Use: Former Smoker Tobacco Type: Amount or Packs/day: How Many Years: Alcohol Use: No Frequency: Quant:
--- NOTE | 2019-11-17 11:23 | HPC ---
[facility] [place] [address] PAIN MANAGEMENT CONSULTATION Name: JULIANE QUEZADA Room #: REG Nano GutierrezBridgetteAmyBridgette#: [id number] Admission: 11/11/19 Attend Phys: Bennie Prakash DO Discharge: Date of : 65 Report #: [id number] THIS REPORT FOR: cc: Bennie Baugh James A. DO Johnson, James E. DO ~ DATE OF SERVICE: 11/11/2019 REFERRING PHYSICIAN: Bennie Baugh D.O. CHIEF COMPLAINT: Low back pain, bilateral lower extremity pain with paresthesias. HISTORY OF PRESENT ILLNESS: As you know, the patient is a 54-year-old male who has been referred to our service for acute onset of low back pain, bilateral lower extremity pain with paresthesias. The patient indicates his pain began 11/30/2014 and has progressively worsened. He denies injury or trauma that may have led to symptom development. The patient reports that he has had epidurals in the past, which gave excellent benefit. He has not sought further treatment with these injections, even though his pain has been present since 2014. He is taking 600 mg ibuprofen along with tramadol with some improvement in overall pain. He reports pain is present when lying down. He states that standing, lifting and bending exacerbate symptoms. He is utilizing a 3 wheeled walker, which he finds helpful for ambulation. Due to lack of improvement with conservative treatment options, the patient was subsequently referred to our clinic for evaluation. He has undergone imaging, which shows changes in the lumbar spine, concerning for the source of his symptoms. The patient reports today pain is continuous. Describes the pain as burning, shooting, aching, sharp, stabbing when describing symptoms, places current pain score at 7/10, daily average is 7/10, worst pain has been 10/10. The patient states that walking long distances, standing for any length of time and simple tasks with exercising exacerbates symptoms. Heat, cold compresses and rest tend to improve pain. He has been referred to our service to discuss interventional treatment options. PAST MEDICAL HISTORY: 1. Hypertension. 2. Degenerative joint disease. 3. Osteoarthritis. 4. Chronic stomach problems, status post gastric sleeve. 5. Asthma. 6. Migraine headaches. PAST SURGICAL HISTORY: [facility] [address] [place] [address] PAIN MANAGEMENT CONSULTATION Name: PILARJULIANE BERMUDEZ Room #: [facility]Wh[facility] Medical CenterBridgette.#: [id number] Admission: 11/11/19 Attend Phys: Bennie Prakash DO Discharge: Date of : 65 Report #: [id number] 1. Gastric sleeve surgery. 2. Foot surgery. SOCIAL HISTORY: The patient denies tobacco, alcohol, IV or illicit drug use. He is working, not receiving workmen's compensation nor is he trying to obtain disability benefits. He is unaccompanied at today's visit. REVIEW OF SYSTEMS: Positive for night sweats, fatigue, weakness, frequent and recurrent migraine headaches, wearing corrective eyewear, chronic sinus problems with rhinitis, shortness of breath with walking or lying flat, chest pain, asthma, wheezing, intermittent nausea, vomiting, constipation interspersed with diarrhea, abdominal pain, frequent urination, nocturia, change of force or stream urination, incontinence and dribbling to urine, varicose veins, lightheadedness and dizziness, numbness and tingling sensations, history of head injury, anxiety disorder, excessive thirst, urination, heat and cold intolerance. All other review of systems negative per 12-point review of systems other than those listed in history of present illness. Pain impact score 47 of 70 indicating moderate interference of daily activities secondary to pain. ALLERGIES: ZOLPIDEM, FENTANYL, AZITHROMYCIN, HYDROCODONE, BUTORPHANOL, KETOROLAC, CELECOXIB. CURRENT MEDICATIONS: Ibuprofen 400 mg 3 times a day, multivitamin 1 tab per day, diclofenac sodium gel applied topically 4 times a day to affected area, Fioricet one tab every 4 hours p.r.n. migraine, alprazolam 0.25 mg at bedtime, albuterol 2 puffs q. 4 hours p.r.n., lisinopril/hydrochlorothiazide 20/12.5 mg once a day, amlodipine 10 mg per day, gabapentin 300 mg t.i.d., tramadol 50 mg q. 8 hours p.r.n., cholecalciferol 1000 units a day, cyanocobalamin 3000 mcg per day. IMAGING: MRI of the lumbar spine obtained 10/21/2019 shows mild lumbar spondylosis, most significant disease present at L4-L5 and L5-S1. Very similar findings to the 04/07/2015 imaging. There is a generalized disk bulge and mild facet arthropathy changes noted at the L4-L5 level, mild bilateral neural foraminal narrowing, no central canal stenosis. L4-L5 shows mild facet degenerative changes, mild generalized disk bulge, moderate hypertrophic degeneration of the neural foramen. No significant central canal stenosis. PHYSICAL EXAMINATION: VITAL SIGNS: Blood pressure 124/86, pulse 75, respiratory rate 20 and unlabored. The patient is 98% on room air. Height 5 feet 10 inches tall, weight 230 pounds, BMI calculated 33.0. GENERAL: Well-developed, well-nourished, well-hydrated exogenously obese 54-year-old male appearing stated age, pain is rated today around 7/10. [facility] [place] [address] PAIN MANAGEMENT CONSULTATION Name: PILARJULIANE EBRMUDEZ Room #: REG SPARKLE Brenda#: [id number] Admission: 11/11/19 Attend Phys: Bennie Prakash DO Discharge: Date of : 65 Report #: [id number] HEENT: Normocephalic, atraumatic. Pupils equal, round and reactive. NEUROLOGIC: Speech is fluent. The patient deemed a fair historian. LUNGS: Appear clear. He is able to speak without difficulty. He completes full sentences. No audible wheezing or rhonchi. CARDIOVASCULAR: Regular. ABDOMEN: Soft, obese. EXTREMITIES: Show no clubbing, no cyanosis, no edema. MUSCULOSKELETAL: Lower extremity strength appears symmetrical 5/5, intact to light touch from L1 through S2 dermatomes. Seated straight leg raising negative. Supine straight leg raising negative. Mick's test is negative. Modified Gaenslen's positive for axial low back pain. Ankle clonus negative. Babinski is negative. Modified Gaenslen's positive for axial low back pain. There is some palpatory tenderness over the paraspinal musculature. No spinous process tenderness. Gait appears normal. Stance is slightly forward flexed lumbar spine with minor loss of lordotic curvature. ASSESSMENT: 1. Possible lumbar radiculopathy. 2. Facet arthropathy of the lumbar spine. 3. Displacement of lumbar intervertebral disk with suspected radiculopathy. 4. Facet arthropathy of the lumbar spine. 5. Lumbar degeneration. PLAN: 1. Based on today's physical exam and the history the patient provides, the description the patient uses in regards to pain, it appears he is suffering from 2 different pain generators, the major generator appears to be the facet changes at the L4-L5 and L5-S1 level, though the patient has been experiencing symptoms radiating down the legs bilaterally, more consistent with a possible lumbar radiculopathy. The patient was sent to our clinic by his primary care physician to discuss the possibility of undergoing interventional treatments to address his symptoms. We discussed the following interventional treatments and more conservative treatment options with the patient today. We discussed physical therapy, stretching exercises and core strengthening as a treatment course. We discussed suggestions for medication management including neuropathic pain medications and a consistent nonsteroidal anti-inflammatory for pain control. We discussed lumbar epidural injections to address any radicular component of the patient's symptoms and intra-articular facet injections, medial branch nerve blocks and radiofrequency lesioning to address the facet arthropathy and axial back pain issues. We also discussed surgical options with the patient, though at this point, we do not feel he has the findings in his imaging studies that would require such. After reviewing the risks and benefits of all proposed treatment options, he wished to move forward with a lumbar epidural injection under fluoroscopic guidance. 2. The patient was advised that due to third democrat payer restrictions, authorization would have to be obtained before the patient could undergo a [address] [address] PAIN MANAGEMENT CONSULTATION Name: JULIANE QUEZADA Room #: REG CLNano Gutierrez#: [id number] Admission: 11/11/19 Attend Phys: Bennie Prakash DO Discharge: Date of : 65 Report #: [id number] lumbar epidural injection. Authorization could take anywhere from 4-7 working days. We will begin this process immediately. Once it has been completed, we will have the patient return to undergo the first in the series. 3. In regards to the patient's facet arthropathy pain, I do feel that a conservative treatment initially would be recommended. We recommend physical therapy and anti-inflammatory medication management. He will follow up with PCP in regards to this issue. 4. We will see the patient back in followup visit once we have achieved authorization for the patient to undergo a lumbar epidural injection to address his lumbar radicular component to his symptoms today. 5. We wish to thank Dr. Baugh for the referral of the patient to our clinic. We will keep you apprised of his response to treatment as we address his ongoing pain issues with interventional treatments. Again, we wish to thank you for the opportunity to see the patient in consultation. <ELECTRONICALLY SIGNED> By: Bennie Prakash DO 11/17/19 1123 1026 1054 Bennie Prakash DO /nt
== END ==
LOC: PAIN 06:54
PROVIDERS: ATTEND Anesthesiology Pain Medicine
DX: M47.816 Spondylosis without myelopathy or radiculopathy, lumbar region (principal); M79.604 Pain in right leg; M79.605 Pain in left leg; M51.26 Other intervertebral disc displacement, lumbar region; M51.36 Other intervertebral disc degeneration, lumbar region; Z88.8 Allergy status to other drugs, medicaments and biological substances; Z79.899 Other long term (current) drug therapy

== ENCOUNTER → 2019-12-01 | Outpatient (CLI) | payer OTHER | LOC: LAB 09:44 | PROVIDERS: ATTEND Nurse Practitioner | DX: R53.83 Other fatigue (principal); R50.9 Fever, unspecified; Z20.828 Contact with and (suspected) exposure to other viral communicable diseases ==

== ENCOUNTER → 2019-12-09 | Outpatient (CLI) | payer OTHER ==
[~2019-12-09] VITALS: Ht 177.8 cm; Wt 109.7 kg
--- NOTE | ~2019-12-09 | HPC ---
[facility] [place] [address] PAIN MANAGEMENT CONSULTATION Name: JULIANE QUEZADA Room #: REG Nano Brenda#: [id number] Admission: 12/09/19 Attend Phys: Bennie Prakash DO Discharge: Date of : 65 Report #: [id number] THIS REPORT FOR: cc: Bennie Baugh James A. DO Johnson, James E. DO ~ CC: Bennie Shin DATE OF SERVICE: 12/09/2019 REFERRING PHYSICIAN: Bennie Baugh DO CHIEF COMPLAINT: Low back pain, bilateral lower extremity pain with paresthesias. HISTORY OF PRESENT ILLNESS: As you know, the patient is a 54-year-old male who reports longstanding history of low back pain, bilateral lower extremity pain with paresthesias. He has had an acute exacerbation of symptoms that brought him back to our clinic that began on 11/30/2014 and progressively worsened. He indicates that he has undergone treatment in the past for this and he had self resolution. Unfortunately, his symptoms did return. He returns today to discuss a lumbar epidural injection for which we have received authorization. He is placing his current pain score at 6/10. He suffered no new injury, no trauma that may have led to symptom continuation nor any changes in medical history since our visit of 11/11/2019. He returns today for the first in a series of epidural injections to address recurrent lumbar radicular pain. ALLERGIES: ZOLPIDEM, FENTANYL, AZITHROMYCIN, HYDROMORPHONE, BUTORPHANOL, KETOROLAC, CELECOXIB. CURRENT MEDICATIONS: Cyanocobalamin, cholecalciferol, tramadol, gabapentin, amlodipine, lisinopril, hydrochlorothiazide, albuterol, alprazolam, Fioricet, diclofenac, multivitamins and ibuprofen. SOCIAL HISTORY: The patient denies tobacco, alcohol, IV or illicit drug use. He is working, not receiving workmen's compensation, unaccompanied today. IMAGING: No new imaging available. PHYSICAL EXAMINATION: VITAL SIGNS: Blood pressure 118/84, pulse is 80, respiratory rate 16 and unlabored. The patient is 98% on room air. Height 5 feet 10 inches tall, weight 241.8 pounds, BMI calculated 34.7. GENERAL: Well-developed, well-nourished, well-hydr[place] [address] PAIN MANAGEMENT CONSULTATION Name: PILARJULIANE BERMUDEZ Room #: REG CLI [facility] [id number] Admission: 12/09/19 Attend Phys: Bennie Prakash DO Discharge: Date of : 65 Report #: [id number] 54-year-old male appearing stated age, pain is rated today as high as 6/10. HEENT: Normocephalic, atraumatic. Pupils equal, round and reactive. Extraocular muscles are intact. Speech fluent. EXTREMITIES: Show no clubbing, no cyanosis, no edema. MUSCULOSKELETAL: Lower extremity strength appears equal and symmetrical 5/5, intact to light touch from L1 through S2 dermatomes. Seated straight leg raising negative. Supine straight leg raising negative. Mick's test is negative. Modified Gaenslen's positive for some axial low back pain. ASSESSMENT: 1. Possible lumbar radiculopathy. 2. Facet arthropathy of the lumbar spine. 3. Displacement of lumbar intervertebral disk with suspected radiculopathy. 4. Facet arthropathy of the lumbar spine. 5. Degeneration of lumbar spine. PLAN: 1. The patient returns today in followup visit having received authorization to undergo lumbar epidural injection under fluoroscopic guidance to address lumbar radicular symptoms. The patient has been advised of the risks and the benefits of a lumbar epidural injection. These risks include but are not necessarily limited to bleeding, bruising, infection, worsening pain, no relief of pain, also risk of temporary or permanent muscle weakness, temporary or permanent nerve damage, possible paralysis and . The patient states understood and wished to proceed. 2. No medication changes made at today's visit. The patient will continue current medical therapy as previously prescribed. 3. We will see the patient back in followup visit on an as needed basis for possible next in the series of lumbar epidural injections. We are hopeful the patient will see good and prolonged benefit with today's injection. DESCRIPTION OF PROCEDURE: L5-S1 right parasagittal epidural steroid injection under fluoroscopic guidance. This is the first procedure of the first series that the patient is undergoing. After obtaining written consent, the patient was taken back to the fluoroscopy suite, placed in a prone position with pillow under the abdomen to decrease lumbar lordosis. The skin overlying the lumbosacral area was then prepped and draped in aseptic fashion. The L5-S1 vertebral interspace was then identified by AP fluoroscopy. The skin and subcutaneous tissue overlying the target site of injection was anesthetized with 3 mL 1% lidocaine. A 20-gauge 3-1/2-inch Tuohy needle was then advanced under fluoroscopic guidance towards the epidural space using a right parasagittal approach. The epidural space was identified using loss of resistance to air technique. After negative [address] [address] PAIN MANAGEMENT CONSULTATION Name: JULIANE QUEZADA Room #: REG CLNano Gutierrez#: [id number] Admission: 12/09/19 Attend Phys: Bennie Prakash DO Discharge: Date of : 65 Report #: [id number] aspiration for heme or cerebrospinal fluid, a total of 1 mL of Omnipaque was injected. A lumbar epidurogram was confirmed using both AP and lateral fluoroscopy. After negative aspiration for heme or cerebrospinal fluid, 5 mL of solution containing 2 mL 40 mg per mL, 80 mg of total triamcinolone along with 3 mL of lidocaine 1% was injected in increments. Contrast spread was noted posterior epidural space. The needle was then retracted approximately half way and needle tract flushed with 1 mL of 1% lidocaine. Needle was then removed. There were no apparent sensory or motor deficits in the lower extremity following the procedure. A sterile bandage was placed over the injection site. The heart rate, pulse, oximetry and blood pressure were continuously monitored after the procedure. There were no apparent complications. The patient tolerated the procedure well and was carefully escorted to the recovery room in stable condition. There were no apparent complications. After meeting discharge criteria, the patient was then discharged home. By: 0936 1107 Bennie Prakash DO /nt
[2019-12-09 14:48] VITALS: BP 118/84
--- NOTE | 2019-12-09 15:00 | NUR ---
Pain Clinic Assessment: 1. History of Osteoarthritis: Left Lower Extremity Right Lower Extremity History of Rheumatoid Arthritis: Not Applicable 2. Height: 5 ft. 10 in. 177.8 cm. Weight: 241.8 lb. oz. 109.680 kg. Patient's BMI: 34.7 3. Vital Signs: BP: 118/84 Pulse: 80 Resp: 16 Temp: 02 Sat: 98 ECG Mon: 4. Pain Intensity: 6 5. Fall Risk: Dizziness: N Needs help standing or walking: N Fallen in the last 3 months: N Fall risk comments: 6. Patient on Blood Thinner: None 7. History of Hypertension: Y 8. Opioid Therapy greater than 6 weeks: Y Opiate Contract Signed: 9. Risk Assessment Tool Provided: LOW-3 10. Functional Assessment Tool: 47/70 11. Recreational Drug Use: Never Drug Type: Tobacco Use: Former Smoker Tobacco Type: Amount or Packs/day: How Many Years: Alcohol Use: No Frequency: Quant:
== END | disposition home or self-care (01) ==
LOC: PAIN 12-02 06:55
PROVIDERS: ATTEND Anesthesiology Pain Medicine
DX: M54.5 Low back pain (principal); M51.36 Other intervertebral disc degeneration, lumbar region; M47.896 Other spondylosis, lumbar region; G89.29 Other chronic pain; Z88.8 Allergy status to other drugs, medicaments and biological substances; Z98.890 Other specified postprocedural states; Z79.899 Other long term (current) drug therapy; Z87.891 Personal history of nicotine dependence

== ENCOUNTER → 2020-01-22 | Outpatient (CLI) | payer OTHER ==
[~2020-01-22] MED LIST changes: -VITAMIN D1000 UNI1; +VITAMIN D325 MC3 PO
== END ==
LOC: LAB 09:43
PROVIDERS: ATTEND Specialist
DX: Z01.812 Encounter for preprocedural laboratory examination (principal); Z20.828 Contact with and (suspected) exposure to other viral communicable diseases

== ENCOUNTER → 2020-01-27 | Outpatient (CLI) | payer OTHER ==
[~2020-01-27] VITALS: Ht 180.3 cm; Wt 105.7 kg
--- NOTE | 2020-01-29 08:12 | P ---
[facility] [place] [address] PROCEDURE REPORT Name: JULIANE QUEZADA Room #: REG Nano Gutierrez#: [id number] Admission: 01/27/20 Attend Phys: Melvin Ac Discharge: Date of : 65 Report #: [id number] THIS REPORT FOR: cc: Bennie Baugh,Melvin Owen MD ~ CC: Melvin Baugh DO DATE OF SERVICE: 01/27/2020 PROCEDURE PERFORMED: Upper endoscopy with biopsies and esophageal dilation. HISTORY OF PRESENT ILLNESS: The patient is a 54-year-old male with burning in his esophagus. He does report mild intermittent dysphagia. He has had a previous history of gastric sleeve surgery approximately 10 years ago, not currently taking any antacids. He denies any odynophagia. He does take NSAIDs on a p.r.n. basis. Denies any nausea or vomiting. DESCRIPTION OF PROCEDURE: The risks and benefits of the procedure were explained to the patient, those risks including but not limited to bleeding, perforation and the risk of sedation. He understood these risks and gave informed consent. Sedation was given using propofol per anesthesia. Next, using a standard Olympus upper endoscope, the scope was placed in the patient's mouth and advanced under direct vision through the esophagus, stomach and into the second portion of the duodenum. The larynx was normal in appearance. The upper and mid esophagus was normal. In the distal esophagus, a possible short segment of Moyer's was noted. Biopsies were obtained. Also, grade A erosive esophagitis was noted. Upon entering the stomach, the gastric fundus was normal. Surgical changes of a gastric sleeve were noted in the body of the stomach. In the antrum, there was a moderate gastritis. Two small clean white based ulcers 3-4 mm were seen. No evidence of bleeding. Biopsies were obtained to rule out H. pylori. The pylorus was normal and patent. The duodenal bulb, first and second portion were all normal. The scope was then brought back up into the patient's stomach and a Savary guidewire was inserted through the scope, leaving the guidewire in place as the scope was then withdrawn. Next, a 48-Yakut Savary dilation of the esophagus was performed without difficulty. The wire and dilator were removed. The scope was reintroduced into the patient's stomach. There was no evidence of mucosal tear after dilation. The scope was then withdrawn and the procedure terminated. The patient tolerated the procedure well. IMPRESSION: 1. Grade A erosive esophagitis. 2. 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 [address] [address] PROCEDURE REPORT Name: JULIANE QUEZADA Room #: REG PSARKLE Gutierrez#: [id number] Admission: 01/27/20 Attend Phys: Melvin Ac Discharge: Date of : 65 Report #: [id number] 3. Surgical changes consistent with gastric sleeve. 4. Gastritis with 2 small antral ulcers. RECOMMENDATIONS: 1. Await biopsy results. 2. Recommend daily PPI therapy. 3. Observe the patient post-dilation. Thank you for allowing me to participate in his care. <ELECTRONICALLY SIGNED> By: Melvin Paredes MD 01/29/20 0812 0944 1200 Melvin Paredes MD /nt
--- NOTE | 2020-01-29 15:07 | PATH ---
[facility] [place] [address] PATHOLOGY RPT PROCEDURE Name: PILARJACOB BERMUDEZ Room #: REG SPARKLE Gutierrez#: [id number] Admission: 01/27/20 Date of : 65 Discharge: Report #: [id number] Path Case #: [id number] [facility] Accession Number: [id number] . 01 Material submitted: . PART A: stomach - BIOPSY OF GASTRITIS R/O H. PYLORI PART B: esophagus - BIOPSY OF DISTAL ESOPHAGUS R/O HOWELL'S. Modifiers: distal . 01 Clinical history: . REFLUX . 02 Diagnosis: A. Stomach, biopsy: - Mild chronic inactive gastritis with reactive changes. - An H. pylori immunostain is negative (A1; appropriate control). . B. Esophageal, distal, biopsy: - Ohwell's esophagus. - Negative for dysplasia. . (MAP:migue; 01/28/2020) MBR 01/28/2020 1548 Local . 02 Electronically signed: . Sushant Townsend MD, Pathologist NPI- [id number] . 01 Gross description: . A. The specimen is received in formalin, labeled "Jacob Simms", "biopsy of gastritis". Received are multiple segments of pale nelson soft tissue, ranging in size from 0.1 cm to 0.5 cm. The specimen is entirely submitted in cassette A1. . B. The specimen is received in formalin, labeled "Jacob Simms", "biopsy of distal esophagus". Received is a single segment of pale white-segura soft tissue, measuring 0.3 cm. The specimen is entirely submitted in cassette B1.([facility]; 01/27/2020) SELENE/CHAUNCEY 01/27/2020 1819 Local . 02 Pathologist provided ICD-10: K29.50, K22.70 . 02 CPT . 358268, 958070, [id number] Specimen Comment: A courtesy copy of this report has been sent to [phone], [phone] [address] PATHOLOGY RPT PROCEDURE Name: JACOB SIMMS Room #: REG Nano Gutierrez#: [id number] Admission: 01/27/20 Date of : 65 Discharge: Report #: [id number] Path Case #: [id number] Specimen Comment: [id number] Specimen Comment: Report sent to / DR CAMEJO Performed at: [address], [place], [place] [id number] MD Olvin Barber MD Phone: [phone] Performed at: [address] [id number] MD Keyla Quiroz MD Phone: [phone]
== END | disposition home or self-care (01) ==
LOC: GI 07:39
PROVIDERS: ATTEND Specialist
DX: R13.10 Dysphagia, unspecified (principal); K21.0 Gastro-esophageal reflux disease with esophagitis; K31.89 Other diseases of stomach and duodenum; K29.50 Unspecified chronic gastritis without bleeding; K22.70 Barrett's esophagus without dysplasia; F41.9 Anxiety disorder, unspecified; I10 Essential (primary) hypertension; G43.909 Migraine, unspecified, not intractable, without status migrainosus; Z87.891 Personal history of nicotine dependence; Z86.73 Personal history of transient ischemic attack (TIA), and cerebral infarction without residual deficits; Z86.19 Personal history of other infectious and parasitic diseases; Z88.1 Allergy status to other antibiotic agents; Z88.8 Allergy status to other drugs, medicaments and biological substances
CPT/HCPCS: 62110; 62900

== ENCOUNTER 2020-03-04 05:57 | Emergency (ER) | payer OTHER ==
[~2020-03-04] VITALS: Ht 180.3 cm; Wt 103.4 kg
[2020-03-04] MEDS ORDERED: LORCET 5-325 M1 EACH PO (06:07)
[2020-03-04 08:56] VITALS: BP 136/98
== END 2020-03-04 08:57 | disposition home or self-care (01) ==
LOC: ER 05:57
DX: G43.909 Migraine, unspecified, not intractable, without status migrainosus (principal); I10 Essential (primary) hypertension; G89.29 Other chronic pain; Z87.891 Personal history of nicotine dependence; Z88.1 Allergy status to other antibiotic agents; Z88.8 Allergy status to other drugs, medicaments and biological substances; Z88.5 Allergy status to narcotic agent; Z79.899 Other long term (current) drug therapy; Z86.73 Personal history of transient ischemic attack (TIA), and cerebral infarction without residual deficits

== ENCOUNTER 2020-06-27 07:24 | Emergency (ER) | payer OTHER ==
[~2020-06-27] VITALS: Ht 180.3 cm; Wt 103.4 kg
[~2020-06-27 07:24] MED LIST changes: +LORCET 5-325 M1 EACH PO
[2020-06-27] MEDS ORDERED: PRILOSEC OTC20 MG PO (07:34)
[2020-06-27] MEDS ORDERED: MEDROLDOSEPACK PO (07:55)
[2020-06-27 08:38] VITALS: BP 154/108
== END 2020-06-27 08:38 | disposition home or self-care (01) ==
LOC: ER 07:24
DX: M25.59 Pain in other specified joint (principal); G89.29 Other chronic pain; I10 Essential (primary) hypertension; G43.909 Migraine, unspecified, not intractable, without status migrainosus; Z87.891 Personal history of nicotine dependence; Z88.1 Allergy status to other antibiotic agents; Z88.6 Allergy status to analgesic agent; Z88.8 Allergy status to other drugs, medicaments and biological substances; Z79.899 Other long term (current) drug therapy; Z86.73 Personal history of transient ischemic attack (TIA), and cerebral infarction without residual deficits

== ENCOUNTER → 2020-11-08 | Outpatient (CLI) | payer OTHER ==
[~2020-11-08] MED LIST changes: +MEDROLDOSEPACK PO; +PRILOSEC OTC20 MG PO
== END ==
LOC: CAT 14:35
PROVIDERS: ATTEND Internal Medicine Cardiovascular Disease
DX: Z13.6 Encounter for screening for cardiovascular disorders (principal); E78.00 Pure hypercholesterolemia, unspecified; I25.10 Atherosclerotic heart disease of native coronary artery without angina pectoris

== ENCOUNTER → 2020-11-22 | Outpatient (CLI) | payer OTHER | LOC: SJCVCIMAG 07:47 | PROVIDERS: ATTEND Internal Medicine Cardiovascular Disease | DX: R07.89 Other chest pain (principal); R06.00 Dyspnea, unspecified; I10 Essential (primary) hypertension; Z87.891 Personal history of nicotine dependence; Z79.899 Other long term (current) drug therapy ==

== ENCOUNTER 2021-02-05 19:45 | Emergency (ER) | payer OTHER ==
[~2021-02-05] VITALS: Ht 177.8 cm; Wt 104.3 kg
[2021-02-05 20:32] LABS: ABSOLUTE NEUTROPHILS 6.6 thou/uL (1.4-8.2); BASOPHILS 0.7 % (0.0-2.0); EOSINOPHILS 2.7 % (0.0-3.0); HEMATOCRIT 50.3 % (42.0-52.0); HEMOGLOBIN 17.1 gm/dL (14.0-18.0); LYMPHOCYTES 19.8 % (24.0-44.0); MCH 30.4 pg (26.0-34.0); MCV 89.4 fL (80.0-100.0); PLATELET COUNT 246 thou/uL (150-400); POLYS 69.8 % (36.0-66.0); RBC 5.63 mil/uL (4.50-6.00); RDW 14.1 % (10.5-14.5); WBC 9.5 thou/uL (4.0-11.0)
[2021-02-05 21:13] LABS: CALCIUM 8.5 mg/dL (8.5-10.1); CREATININE 1.4 mg/dL (0.7-1.3); POTASSIUM 3.4 mmol/L (3.5-5.1)
[2021-02-05 21:23] LABS: ALBUMIN 3.7 g/dL (3.4-5.0); TOTAL BILIRUBIN 0.4 mg/dL (0.2-1.0); TOTAL PROTEIN 6.8 g/dL (6.4-8.2)
[2021-02-05 23:16] VITALS: BP 135/95
--- NOTE | 2021-02-06 07:35 | EKG ---
[place] [address] [facility] [place] [address] ELECTROCARDIOGRAM REPORT Name: JULIANE QUEZADA [facility] [id number] Admission: 02/05/21 Attend Phys: Discharge: 02/05/21 Date of : 65 Report #: [id number] [facility] ED Test Date: 2021-02-05 Test Time: 19:53:00 Pat Name: JULIANE QUEZADA Department: Room: Gender: Compensation Expert: DAE : 1965 Requested By: Alex Soria Order Number: [id number] MD: Kg Grullon Measurements Intervals Bock Rate: 97 P: 78 HI: 165 QRS: 54 QRSD: 88 T: 95 QT: 355 QTc: 451 Interpretive Statements Sinus rhythm Left atrial enlargement Borderline T abnormalities, lateral leads Compared to ECG 10/15/2018 11:35:31 No significant change was found Electronically Signed On 02-06-2021 7:35:39 CDT by Kg Grullon [email or web address] <ELECTRONICALLY SIGNED> By: Kg Grullon MD, [facility] 02/06/21 0735 52 52 Kg Grullon MD, FACC /EPI
== END 2021-02-05 23:28 | disposition home or self-care (01) ==
LOC: ER 19:45
PROVIDERS: Emergency Medicine
DX: F41.9 Anxiety disorder, unspecified (principal); R07.89 Other chest pain; I10 Essential (primary) hypertension; K21.9 Gastro-esophageal reflux disease without esophagitis; G43.909 Migraine, unspecified, not intractable, without status migrainosus; Z79.899 Other long term (current) drug therapy; Z87.891 Personal history of nicotine dependence; Z88.5 Allergy status to narcotic agent; Z88.6 Allergy status to analgesic agent; Z88.9 Allergy status to unspecified drugs, medicaments and biological substances; Z88.8 Allergy status to other drugs, medicaments and biological substances

== ENCOUNTER → 2021-03-15 | Outpatient (CLI) | payer OTHER ==
[~2021-03-15] VITALS: Ht 177.8 cm; Wt 103.4 kg
[~2021-03-15] MED LIST changes: +ALBUTEROL2.5 MG/0.1 INH; +ALPRAZOLAM1 MG PO; +FINASTERIDE5 MG PO; +OLMESARTAN-HCT1 EAC1 PO; +TAMSULOSIN HCL0.4 MG PO
--- NOTE | 2021-03-16 18:06 | PATH ---
[facility] [place] [address] PATHOLOGY RPT PROCEDURE Name: JACOB SIMMS Room #: REG SPARKLE Deluna.#: [id number] Admission: 03/15/21 Date of : 65 Discharge: Report #: [id number] Path Case #: [id number] [facility] Accession Number: [id number] . 01 Material submitted: . PART A: gastrointestinal site - GASTRIC BIOPSY- GASTRITIS- R/O H. PYLORI PART B: esophagus - DISTAL ESOPHAGUS BIOPSY- HX OF HOWELL'S. Modifiers: distal . 01 Clinical history: . HOWELL'S ESOPHAGUS DUODENAL ULCER . 02 Diagnosis: A. Gastric mucosa, gastritis, rule out H. pylori, endoscopic biopsy: - Moderate reactive gastropathy. - Negative for intestinal metaplasia or atrophy. - Negative for Helicobacter pylori (properly controlled immunohistochemical stain performed). . B. Gastroesophageal mucosa, distal esophagus, rule out Howell's, endoscopic biopsy: - Gastric-type mucosa and squamous mucosa showing moderate active esophagitis. - Negative for intestinal metaplasia (Howell's metaplasia) or dysplasia. . (IUV:stretch box tender; 03/16/2021) MBR 03/16/2021 1430 Local . 02 Electronically signed: . Keyla Quiroz MD, Pathologist NPI- [id number] . 01 Gross description: . A. The specimen is submitted in formalin, labeled "Jacob Simms, gastric biopsy". Received are multiple segments of pale nelson tissue ranging in size from 0.3 to 0.4 cm in maximum dimensions. The specimen is submitted entirely in cassette A1. . B. The specimen is submitted in formalin, labeled "Jacob Simms, distal esophagus biopsy". Received are 3 segments of pale nelson tissue ranging in size from 0.3 to 0.4 cm in maximum dimensions. The specimen is submitted entirely in cassette B1. ([facility]; 03/15/2021) NRI/NRI 03/15/2021 2130 Local . 02 Pathologist provided ICD-10: [address] [address] PATHOLOGY RPT PROCEDURE Name: JACOB SIMMS Room #: REG CL Brenda#: [id number] Admission: 03/15/21 Date of : 65 Discharge: Report #: [id number] Path Case #: [id number] K31.9, K20.90 . 02 CPT . 124767, [id number], [id number] Specimen Comment: A courtesy copy of this report has been sent to [phone], [phone] Specimen Comment: [phone] Specimen Comment: Report sent to / DR HEWITT Performed at: [address], [place] [id number] MD Roel Huff MD Phone: [phone] Performed at: [address] [id number] MD Keyla Quiroz MD Phone: [phone]
--- NOTE | 2021-03-17 08:20 | P ---
[facility] [place] [place] [address] PROCEDURE REPORT Name: JULIANE QUEZADA Room #: REG [facility] Brenda#: [id number] Admission: 03/15/21 Attend Phys: Melvin Ac Discharge: Date of : 65 Report #: [id number] THIS REPORT FOR: cc: Bennie Baugh James A. DO McElhinney, Christian C. MD ~ cc: Bennie Baugh DO DATE OF SERVICE: 03/15/2021 PROCEDURE PERFORMED: Upper endoscopy with biopsies. HISTORY OF PRESENT ILLNESS: The patient is a 56-year-old male with a history of gastroesophageal reflux disease, status post gastric sleeve surgery and a history of Moyer's esophagus. He is here for 1-year followup. He is on PPI therapy on a daily basis. Despite this, he does report intermittent heartburn symptoms and pain after eating. DESCRIPTION OF PROCEDURE: The risks and benefits of the procedure were explained to the patient, those risks including but not limited to bleeding, perforation and the risk of sedation. He understood these risks and gave informed consent. Sedation was given using propofol per Anesthesia. Next, using a standard Olympus upper endoscope, the scope was placed in the patient's mouth and advanced under direct vision through the esophagus, stomach and into the second portion of the duodenum. The upper and mid esophagus was normal in appearance. In the distal esophagus, a short segment of Moyer's was noted. Biopsies obtained. Surgical changes consistent with gastric sleeve were noted in the mid portion of the stomach. There was a mild gastritis in the antrum. Biopsies were obtained to rule out H. pylori. In the proximal portion of the duodenal bulb, a single clean white based ulcer, 4 mm in size was noted. No evidence of bleeding. The remaining duodenal bulb, first and second portion of the duodenum were all normal. The scope was then withdrawn and the procedure terminated. The patient tolerated the procedure well. IMPRESSION: 1. Short segment Moyer's esophagus. 2. Surgical changes of gastric sleeve noted. 3. Mild gastritis. 4. Small duodenal bulb ulcer. RECOMMENDATIONS: 1. Await biopsy results. 2. We will add Khushboo gilbert [facility] [address] [place] [address] PROCEDURE REPORT Name: JULIANE QUEZADA Room #: REG [facility] Brenda#: [id number] Admission: 03/15/21 Attend Phys: Melvin Ac Discharge: Date of : 65 Report #: [id number] Thank you for allowing me to participate in his care. <ELECTRONICALLY SIGNED> By: Melvin Paredes MD 03/17/21 0820 [id number] Melvin Paredes MD /nt
== END | disposition home or self-care (01) ==
LOC: GI 05:51
PROVIDERS: ATTEND Specialist
DX: R12 Heartburn (principal); K31.9 Disease of stomach and duodenum, unspecified; K21.00 Gastro-esophageal reflux disease with esophagitis, without bleeding; K26.9 Duodenal ulcer, unspecified as acute or chronic, without hemorrhage or perforation; I10 Essential (primary) hypertension; G43.909 Migraine, unspecified, not intractable, without status migrainosus; F41.9 Anxiety disorder, unspecified; Z98.890 Other specified postprocedural states; Z79.899 Other long term (current) drug therapy; Z86.73 Personal history of transient ischemic attack (TIA), and cerebral infarction without residual deficits; Z98.84 Bariatric surgery status; Z87.891 Personal history of nicotine dependence; Z20.822 Contact with and (suspected) exposure to COVID-19
CPT/HCPCS: 62110; 62900

== ENCOUNTER → 2021-05-30 | Outpatient (CLI) | payer OTHER | LOC: RAD 09:41 | PROVIDERS: ATTEND Family Medicine | DX: M54.9 Dorsalgia, unspecified (principal) ==